=== PATIENT | female | born 1975 | race Hispanic/Latino ===

== ENCOUNTER 2019-11-14 00:35 | Observation (INO) | payer BC ==
[2019-11-14 01:17] LABS: #Basophils 0.1 thou/uL (0.0-0.2); #Eosinphils 0.3 thou/uL (0.0-0.7); #Lymphocytes 2.6 thou/uL (1.20-3.40); #Monocytes 1.4 thou/uL (0.11-0.59); #Neutrophils 13.2 thou/uL (1.40-6.50); %Basophils 0.4 % (0.0-1.0); %Eosinophils 1.5 % (0.0-10.0); %Lymphocytes 14.9 % (21.0-51.0); %Monocytes 7.8 % (0.0-10.0); %Neutrophils 75.3 % (42.0-75.0); Hemoglobin 14.8 g/dL (12.0-16.0); Mean Corpuscular HGB CONC 33.3 g/dL (32.0-36.0); Mean Corpuscular Hemoglobin 30.9 pg (27.0-31.0); Mean Corpuscular Volume 92.8 fL (78.0-98.0); Mean Platelet Volume 8.8 fL (7.4-10.4); Platelet Count 275 thou/uL (130-400); RBC Distribution Width 11.7 % (11.5-14.5); Red Blood Cell (RBC) Count 4.77 mill/uL (4.20-5.40); White Blood Cell (WBC) Count 17.6 thou/uL (4.8-10.8)
[2019-11-14 01:39] LABS: BHCG - Serum Negative (NEGATIVE); Pregs Control Background? CLEAR/WHITE (CLR/WHITE); Pregs Control Bar Appear? YES (CONTROL BAR)
[2019-11-14 01:42] LABS: ALT (SGPT) 35 U/L (8-55); AST (SGOT) 37 U/L (5-34); Albumin 4.2 g/dL (3.5-5.0); Alkaline Phosphatase 79 U/L (40-110); Anion Gap 15 mmol/L (10-20); BUN (Urea Nitrogen) 13 mg/dL (7.0-18.7); Bilirubin, Total 0.4 mg/dL (0.2-1.2); Calc. Creatinine Clearance 0 mL/min (70-130); Calcium 9.3 mg/dL (7.8-10.44); Carbon Dioxide 20 mmol/L (22-29); Chloride 103 mmol/L (98-107); Estimated GFR-MDRD Greater than 90; Globulin 3.3 g/dL (2.4-3.5); Glucose 143 mg/dL (70-105); Lipase 24 U/L (8-78); Potassium 3.9 mmol/L (3.5-5.1); Protein, Total 7.5 g/dL (6.0-8.3); Sodium 134 mmol/L (136-145)
[2019-11-14 01:46] LABS: Pregnancy Test - Urine (BHCG) Negative (Negative); Pregu Control Background? CLEAR/WHITE (CLR/WHITE); Pregu Control Bar Appear? YES (CONTROL BAR)
[2019-11-14 01:48] LABS: Bacteria/HPF None Seen HPF (None Seen); Bilirubin Negative (Negative); Blood, Urine 2+ (Negative); Clarity Turbid (Clear); Glucose, Urine (Dipstick) Normal (Negative); Leukocyte 500 Leu/uL (Negative); Nitrite Negative (Negative); Protein, Urine (Dipstick) 50 mg/dL (Neg-Trace); RBC/HPF 21-50 HPF (0-3); Squamous Epithelial 0-3 HPF (0-3); Urobilinogen Normal mg/dL (Less than 2); WBC/HPF Greater than 50 HPF (0-3)
[2019-11-14] MEDS ORDERED: cefTRIAXone\\ROCEPHIN 1 GM VIAL ONE (03:23)
[2019-11-14] MEDS ORDERED: Ketorolac Tromethamine 30 MG/ML VIAL ONE (04:59)
[2019-11-14] MEDS ORDERED: Piperacillin/Tazobactam 3.375 GM VIAL ONE (05:06)
[2019-11-14] MEDS ORDERED: Ondansetron PF 4 MG/2 ML Vial IVP PRN (05:42)
[2019-11-14] MEDS ORDERED: Ondansetron ODT 4 MG TAB SL PRN (05:42)
[2019-11-14] MEDS ORDERED: Sodium Chloride 0.9% 1,000 ML IV SCH (05:42)
[2019-11-14] MEDS ORDERED: Ketorolac Tromethamine 30 MG/ML VIAL IVP PRN (05:43)
[2019-11-14] MEDS ORDERED: Morphine 4 MG/ML VIAL SLOW IVP PRN (05:43)
[2019-11-14] MEDS: Sodium Chloride 0.9% 1,000 ML IV SCH ×2 (06:40→14:45)
--- NOTE | 2019-11-14 08:08 | CT ---
PRELIMINARY REPORT/[facility]/EMERGENCY AFTER HOURS PROCEDURE: This report was discussed with Renetta Carlos RN by Elvira Leal on Nov 14, 2019 04:24:00 GRITTING MACHINE OPERATOR. Addendum electronically signed by Elvira Leal on November 14, 2019 4:24:45 AM GRITTING MACHINE OPERATOR EXAM: CT Abdomen and Pelvis with Intravenous Contrast CLINICAL HISTORY: Pt presents for RLQ and right flank pain X 4 hrs. Denies n/v/d, fever, or urinary symptoms. No vag bl eeding or discharge. Pain somewhat improved with ibuprofen. Exacerbated by walking. COMPARISON: None provided. FINDINGS: LUNG BASES: Left lower lobe 4 mm pulmonary nodule. LIVER: Steatosis. GALLBLADDER AND BILE DUCTS: No calcified gallstone. No biliary ductal dilation. PANCREAS: Unremarkable. SPLEEN: Unremarkable. ADRENAL GLANDS: Unremarkable. KIDNEYS, URETERS, AND BLADDER: No obstructing radiopaque renal calculus or evidence of hydronephrosis . STOMACH AND BOWEL: Small hiatal hernia. Nonspecific fluid and fecal filled loops of normal caliber sm all bowel. Moderate to severe fecal retention. No evidence of acute bowel obstruction. APPENDIX: Dilated, hyperemic appendix with air and fluid throughout the lumen measuring up to 9 mm in caliber with minimal surrounding inflammatory stranding/edema. PERITONEUM: No free air or sizable fluid collection. LYMPH NODES: Numerous nonspecific top normal size mesenteric and retroperitoneal lymph nodes, possibl y reactive in etiology. REPRODUCTIVE: Bulky heterogeneous nodular uterus suggesting underlying fibroids. Left adnexal/ovarian complex 3 cm cyst and small probable involuting corpus luteum. VASCULATURE: No aortic aneurysm. BONES: No fracture or suspicious osseous abnormality. ABDOMINAL WALL AND SOFT TISSUES: Unremarkable. IMPRESSION: 1. Findings compatible with acute appendicitis in the proper clinical setting. No evidence of perfor ation or abscess. 2. Left adnexal/ovarian complex 3 cm cyst. Pelvic ultrasound can be performed for further evaluation . 3. Moderate to severe fecal retention with suggestion of chronic stasis in the small bowel. No evid ence of acute obstruction. 4. Bulky uterus with suggestion of multiple fibroids. 5. Left lower lobe 4 mm pulmonary nodule. Optional annual CT follow-up can be considered depending o n patient risk factors as per Fleischner Society criteria. ELECTRONICALLY SIGNED BY: Jay Freire MD Nov 14, 2019 4:16:49 AM GRITTING MACHINE OPERATOR This report is intended for review by the ordering physician only, in accordance of law. If you recei ve this report in error, please call [facility] at [phone]. FINAL REPORT EMERGENCY AFTER HOURS CT ABDOMEN AND PELVIS WITH IV CONTRAST: IMPRESSION: 1. Left lower lobe pulmonary nodule measuring approximately 4 mm. 2. Hypodense lesion with peripheral enhancing margin seen within the left adnexal region measuring 2 .8 cm. This may represent an ovarian cyst. Pelvic ultrasound is suggested for further evaluation. 3. Heterogeneity of the uterus with suggestion of a few scattered small masses within the uterus lik sada related to uterine fibroids. This can also be evaluated on ultrasound examination. 4. Preliminary report mentions appendicitis. While the tip of the appendix is mildly dilated, measur ing approximately 8 mm, there is gas seen in the tip of the appendix as well as in a large portion of the appendix, and there are no periappendiceal inflammatory changes. There are no definitive finding s to suggest appendicitis based on this exam. 5. Small to moderate amount of retained fecal material seen throughout the colon suggesting constipa tion. No dilated loops of small bowel are seen. 6. Trace amount of free fluid in the pelvis which may be physiologic in origin. Findings are in DISAGREEMENT with the preliminary report by [facility] in regards to evidence o f appendicitis. While the distal portion of the appendix is mildly dilated, there is gas seen within the appendix, and no periappendiceal inflammatory changes are identified. These findings were reviewe d with Dr. Palumbo, who is also in agreement with these findings. Findings were discussed with Dr. Emeterio matias on 11/14/2019 at 0751 hours. CODE QD POS: OFF
--- NOTE | 2019-11-14 09:24 | PRG ---
DATE OF SERVICE: 11/14/2019 SUBJECTIVE: Ms. Jefferson has no pain this morning. I received a call this morning from Radiology, in which the over-read for the CT overnight, they do not think she has obvious appendicitis. She has air in her appendix and no periappendiceal inflammation. The patient did note some burning with her urination for the last few days. She has been afebrile overnight, and her pain is resolved. PHYSICAL EXAMINATION: VITAL SIGNS: Her pulse is 60, respirations 16, temperature 97.8, and blood pressure 114/76. CHEST: Clear. HEART: Regular rate. ABDOMEN: Soft, nontender, nondistended. LABORATORY DATA: Examination of her urine is turbid, 50 protein, 2+ blood, 500 leukocyte esterase, 21 to 50 rbc's, greater than 50 wbc's, and CT scan as above. ASSESSMENT: Abdominal pain, resolved and over-read on CT showing no obvious appendicitis. PLAN: We will continue antibiotics and allow for a liquid diet today. Recheck her white blood cell count at noon. I suspect this is all urinary tract infection. She can be discharged home this afternoon. Job ID: [id number]
[2019-11-14] MEDS ORDERED: Piperacillin/Tazobactam 3.375 GM in Sodium Chloride 0.9% 100 ML IVPB SCH (11:00)
[2019-11-14 12:26] LABS: #Eosinphils 0.2 thou/uL (0.0-0.7); #Lymphocytes 2.4 thou/uL (1.20-3.40); #Monocytes 1.2 thou/uL (0.11-0.59); #Neutrophils 11.6 thou/uL (1.40-6.50); %Basophils 0.1 % (0.0-1.0); %Eosinophils 1.3 % (0.0-10.0); %Lymphocytes 15.5 % (21.0-51.0); %Monocytes 7.6 % (0.0-10.0); %Neutrophils 75.6 % (42.0-75.0); Hemoglobin 13.6 g/dL (12.0-16.0); Mean Corpuscular HGB CONC 32.3 g/dL (32.0-36.0); Mean Corpuscular Hemoglobin 30.5 pg (27.0-31.0); Mean Corpuscular Volume 94.5 fL (78.0-98.0); Mean Platelet Volume 9.3 fL (7.4-10.4); Platelet Count 269 thou/uL (130-400); RBC Distribution Width 11.7 % (11.5-14.5); Red Blood Cell (RBC) Count 4.46 mill/uL (4.20-5.40); White Blood Cell (WBC) Count 15.3 thou/uL (4.8-10.8)
[2019-11-14] MEDS ORDERED: Iopamidol 370 76% 100 ML VIAL ONE (14:49)
[2019-11-14 15:20] VITALS: BP 111/71; TEMP 98.3
--- NOTE | 2019-11-14 17:09 | PRG ---
DATE OF SERVICE: 11/14/2019 Ms. Jefferson is seen on afternoon rounds. She has no pain. She has no nausea. She had been ambulating in the padilla and she tolerated a regular diet for lunch. She would like to go home. She will be sent home on Levaquin 500 daily for her UTI and she will take that for seven more day. She will return to my office next week. She was given my office number and cell phone number and she will call me, if her symptoms worsen. Job ID: [id number]
--- NOTE | 2019-11-15 04:32 | SS ---
DATE OF ADMISSION: 11/14/2019 DATE OF DISCHARGE: 11/14/2019 ADMITTING DIAGNOSIS: Right lower quadrant pain. DISCHARGE DIAGNOSIS: Right lower quadrant pain. PROCEDURES: None. CONDITION ON DISCHARGE: Improved, the pain is resolved. HOSPITAL COURSE: The patient was admitted with right lower quadrant pain associated with dysuria. She had tenderness in the right lower quadrant. She had CT scan, which showed question of appendicitis, however, over-read by our radiologist showed no obvious appendicitis. On my exam this morning, she had no abdominal tenderness. She was hungry. She has been up and walking. She is tolerating regular diet. She is afebrile. Vital signs are stable. Her infectious count went from 17 to 15 that could be from her UTI. She is being sent home on oral antibiotics. She will call me if she has increasing in pain, otherwise, return to my office and see me in a week. Job ID: [id number]
== END 2019-11-14 17:45 | disposition home or self-care (01) ==
LOC: ERS 00:35 → SURG B 04:46
PROVIDERS: ADMIT Specialist; ATTEND Specialist
DX: N39.0 Urinary tract infection, site not specified (principal); R91.1 Solitary pulmonary nodule
CPT/HCPCS: 36415; 74177; 80053; 81003; 81015; 81025; 83690; 84703; 85025; 96361; 96365; 96366; 96375; G0378; J0696; J1885; J2543; J3490; Q9967